=== PATIENT | male | born 1940 | race Hispanic/Latino ===

== ENCOUNTER 2024-12-25 13:46 | Inpatient (IN) | payer OTHER ==
[2024-12-25] VITALS (8 sets, daily range): BP systolic 126–146; BP diastolic 61–84; PULSE 66–96; RESP 17–18; TEMP 97.3–98.5; O2SAT 94–99
[~2024-12-25] VITALS: Ht 172.7 cm; Wt 69.6 kg
[2024-12-25 14:05] LABS: BASOPHIL % 0.2 % (0.2-1.2); EOSINOPHIL # 0.1 10^3/uL (0.0-0.2); EOSINOPHIL % 0.8 % (0.0-5.0); HEMATOCRIT(ML) 36.9 % (37.0-53.0); HEMOGLOBIN 11.6 g/dL (13.9-16.3); LYMPHOCYTES # 1.76 10^3/uL1 (1.0-4.8); LYMPHOCYTES % 16.6 % (24.0-44.0); MEAN CORP HGB 30.4 pg (26-34); MEAN CORP HGB CONCENTRATION 31.4 g/dL (33-36.5); MEAN CORP VOLUME 96.6 fL (78-100); MONOCYTES # 1.4 10^3/uL (0.3-0.8); MONOCYTES % 13.1 % (5.0-12.0); NEUTROPHIL # 7.3 10^3/uL (1.8-7.7); NEUTROPHILS % 68.8 % (41.0-85.0); PLATELET COUNT 303 10^3/uL (150-400); RED BLOOD CELL 3.82 10^6/uL (4.50-5.90); RED CELL DISTRIBUTION WIDTH 12.8 % (11.5-14.5); WHITE BLOOD CELL 10.6 10^3/uL (4.5-11.0)
[2024-12-25 14:06] LABS: +ADD MANUAL DIFF(NO CHRG) NO
[2024-12-25 14:18] LABS: INR 1.1
[2024-12-25 14:27] LABS: ALBUMIN(ML) 2.6 g/dL (3.4-5.0); ALBUMIN/GLOBULIN RATIO 0.666; ANION GAP 8.4; BUN/CREATININE RATIO 11.59 (10.0-20.0); CALCIUM 7.6 mg/dL (8.4-10.5); CARBON DIOXIDE 26.3 mmol/L (20.0-32); CREATININE SERUM 1.38 mg/dL (0.59-1.40); EST GFR, NON-AA 49.2 (>/=60); POTASSIUM 3.7 mmol/L (3.6-5.2)
[2024-12-25 15:01] LABS: BILIRUBIN,URINE NEGATIVE (NEGATIVE); LEUKOCYTE ESTERASE ,URINE NEGATIVE (NEGATIVE); NITRATE,URINE NEGATIVE (NEGATIVE)
[2024-12-25 15:02] LABS: APPEARANCE,URINE CLEAR; UA COLOR YELLOW
[2024-12-25] MEDS ORDERED: MELATONIN PO PRN (17:00)
[2024-12-25] MEDS ORDERED: SIMETHICONE PO PRN (17:00)
[2024-12-25] MEDS ORDERED: MILK OF MAGNESIA PO PRN (17:00)
[2024-12-25] MEDS ORDERED: TYLENOL PO PRN (17:00)
[2024-12-25] MEDS ORDERED: MORPHINE SULFATE IV PRN (17:00)
[2024-12-25] MEDS ORDERED: VENTOLIN IH PRN (17:00)
[2024-12-25] MEDS ORDERED: SENNA PO PRN (17:00)
[2024-12-25] MEDS ORDERED: ZOFRAN IV PRN (17:00)
[2024-12-25] MEDS ORDERED: MYLANTA PO PRN (17:00)
[2024-12-25] MEDS: NS 500ML 500 ML IV ONE (17:36)
[2024-12-25] MEDS: TYLENOL PO PRN (17:36)
[2024-12-26] VITALS (7 sets, daily range): BP systolic 123–153; BP diastolic 71–83; PULSE 68–87; RESP 16–18; TEMP 97.5–98; O2SAT 90–97
[2024-12-26 05:54] LABS: ALBUMIN(ML) 2.4 g/dL (3.4-5.0); ALBUMIN/GLOBULIN RATIO 0.6; ANION GAP 8.8; BUN/CREATININE RATIO 11.53 (10.0-20.0); CALCIUM 7.6 mg/dL (8.4-10.5); CARBON DIOXIDE 25.4 mmol/L (20.0-32); CREATININE SERUM 1.04 mg/dL (0.59-1.40); EST GFR, NON-AA 68.2 (>/=60); POTASSIUM 4.2 mmol/L (3.6-5.2)
[2024-12-26] MEDS: PEPCID PO SCH (08:18)
[2024-12-26] MEDS ORDERED: MAGNESIUM 2 GRAM/50ML 50 ML IV ONE (18:27)
[2024-12-26] MEDS ORDERED: KLOR-CON 10 PO ONE (18:28)
[2024-12-27] VITALS (10 sets, daily range): BP systolic 84–148; BP diastolic 44–78; PULSE 70–103; RESP 16–20; TEMP 97.7–102.5; O2SAT 90–99
[2024-12-27 05:57] LABS: HEMATOCRIT(ML) 36.7 % (37.0-53.0); HEMOGLOBIN 12.1 g/dL (13.9-16.3); MEAN CORP HGB 30.9 pg (26-34); MEAN CORP VOLUME 93.6 fL (78-100); RED BLOOD CELL 3.92 10^6/uL (4.50-5.90); WHITE BLOOD CELL 17.5 10^3/uL (4.5-11.0)
[2024-12-27 06:17] LABS: ALBUMIN(ML) 2.6 g/dL (3.4-5.0); ALBUMIN/GLOBULIN RATIO 0.59; ANION GAP 14.6; BUN/CREATININE RATIO 11.81 (10.0-20.0); CARBON DIOXIDE 24.4 mmol/L (20.0-32); CREATININE SERUM 1.1 mg/dL (0.59-1.40); EST GFR, NON-AA 63.9 (>/=60); LDL/HDL RATIO 1.7
[2024-12-27 12:27] LABS: CORO 229E NotDetected (NotDetected); CORO HKU1 NotDetected (NotDetected); CORO OC43 NotDetected (NotDetected); RHINOVIRUS/ ENTEROVIRUS NotDetected (NotDetected); SARS CoV 2 NotDetected (NotDetected)
[2024-12-27] MEDS ORDERED: NS 100ML 100 ML IV ONE ×2 (15:02→20:25)
[2024-12-27] MEDS ORDERED: NS 250ML 250 ML ONE (15:03)
[2024-12-27] MEDS: ZOSYN 3.375 GM 3.375 GM in NS 100ML 100 ML IV SCH (15:06)
[2024-12-27] MEDS ORDERED: NS 500ML 500 ML IV ONE (18:10)
[2024-12-27] MEDS ORDERED: NS 500ML 500 ML IV STA (18:13)
[2024-12-27 18:31] LABS: BASOPHIL % 0.1 % (0.2-1.2); HEMATOCRIT(ML) 34.9 % (37.0-53.0); HEMOGLOBIN 11.2 g/dL (13.9-16.3); LYMPHOCYTES # 1.13 10^3/uL1 (1.0-4.8); LYMPHOCYTES % 4.5 % (24.0-44.0); MEAN CORP HGB 30.6 pg (26-34); MEAN CORP HGB CONCENTRATION 32.1 g/dL (33-36.5); MEAN CORP VOLUME 95.4 fL (78-100); MONOCYTES # 1.3 10^3/uL (0.3-0.8); MONOCYTES % 5.1 % (5.0-12.0); NEUTROPHIL # 22.7 10^3/uL (1.8-7.7); NEUTROPHILS % 89.5 % (41.0-85.0); PLATELET COUNT 265 10^3/uL (150-400); RED BLOOD CELL 3.66 10^6/uL (4.50-5.90)
[2024-12-27 18:34] LABS: +ADD MANUAL DIFF(NO CHRG) NO; WHITE BLOOD CELL 25.3 10^3/uL (4.5-11.0)
[2024-12-27 19:19] LABS: ANION GAP 15.9; BUN/CREATININE RATIO 10.71 (10.0-20.0); CALCIUM 7.6 mg/dL (8.4-10.5); CARBON DIOXIDE 20.9 mmol/L (20.0-32); CREATININE SERUM 1.68 mg/dL (0.59-1.40); EST GFR, NON-AA 39.2 (>/=60); POTASSIUM 3.8 mmol/L (3.6-5.2)
[2024-12-27] MEDS: NS 1000ML 1,000 ML IV ONE (19:28)
[2024-12-27] MEDS: NS 1000ML 1,000 ML ONE (20:28)
[2024-12-28] VITALS (7 sets, daily range): BP systolic 124–155; BP diastolic 64–76; PULSE 67–90; RESP 18–20; TEMP 98.2–98.6; O2SAT 92–96
[2024-12-28] MEDS ORDERED: NS 100ML 100 ML IV ONE ×3 (01:55→14:43)
[2024-12-28] MEDS ORDERED: NS 250ML 250 ML ONE (02:00)
[2024-12-28 12:23] LABS: BASOPHIL % 0.1 % (0.2-1.2); EOSINOPHIL # 0.1 10^3/uL (0.0-0.2); EOSINOPHIL % 0.3 % (0.0-5.0); HEMATOCRIT(ML) 34.3 % (37.0-53.0); HEMOGLOBIN 10.9 g/dL (13.9-16.3); IG % 0.4 % (0.00-0.50); LYMPHOCYTES # 1.13 10^3/uL1 (1.0-4.8); LYMPHOCYTES % 5.4 % (24.0-44.0); MEAN CORP HGB 30.3 pg (26-34); MEAN CORP HGB CONCENTRATION 31.8 g/dL (33-36.5); MEAN CORP VOLUME 95.3 fL (78-100); MONOCYTES # 1.9 10^3/uL (0.3-0.8); MONOCYTES % 8.8 % (5.0-12.0); NEUTROPHIL # 17.9 10^3/uL (1.8-7.7); RED BLOOD CELL 3.6 10^6/uL (4.50-5.90); WHITE BLOOD CELL 21.1 10^3/uL (4.5-11.0)
[2024-12-28 12:56] LABS: ALBUMIN(ML) 2.1 g/dL (3.4-5.0); ALBUMIN/GLOBULIN RATIO 0.512; ANION GAP 12.2; BUN/CREATININE RATIO 18.8 (10.0-20.0); CALCIUM 7.5 mg/dL (8.4-10.5); CARBON DIOXIDE 21.6 mmol/L (20.0-32); CREATININE SERUM 1.17 mg/dL (0.59-1.40); EST GFR, NON-AA 59.5 (>/=60); POTASSIUM 3.8 mmol/L (3.6-5.2)
== END 2024-12-28 17:15 | disposition home or self-care (01) | DRG 312 ==
LOC: EDBD 13:46 → ER 13:46 → OBS 15:52 → OBSVTOIN 12-26 15:52 → MS 12-26 15:53
PROVIDERS: ADMIT Internal Medicine; ATTEND Family Medicine
DX: R55 Syncope and collapse (principal); R65.10 Systemic inflammatory response syndrome (SIRS) of non-infectious origin without acute organ dysfunction; D64.9 Anemia, unspecified; H54.7 Unspecified visual loss; K59.00 Constipation, unspecified; R09.02 Hypoxemia; I95.9 Hypotension, unspecified
CPT/HCPCS: 36415; 70450; 70496; 70498; 70551; 71045; 80048; 80053; 80061; 81003; 82140; 83605; 83690; 83735; 83880; 84443; 84484; 85025; 85027; 85610; 85730; 87040; 87637; 93005; 99285; G0378; J2543; J3475; J3490; J7030; J7040; J7050